=== PATIENT | female | born 1950 | race Caucasian/White ===

== ENCOUNTER 2016-03-21 21:55 | Inpatient (IN) | payer OTHER ==
[~2016-03-21] VITALS: Ht 175.3 cm; Wt 98.9 kg
[2016-03-21 22:05] VITALS: BP 120/86; PULSE 105; RESP 18; TEMP 98.1; O2SAT 89
[2016-03-21] MEDS ORDERED: NACL 0.9% 1,000 ML IV SCH (22:25)
[2016-03-21 22:51] LABS: HEMATOCRIT 27.8 % (36-48); HEMOGLOBIN 8.7 g/dL (12.0-16.0); MEAN CORPUSCULAR HEMOGLOBIN 25 pg (27-31); MEAN CORPUSCULAR HGB CONC 31 % (32-36); MEAN CORPUSCULAR VOLUME 79 fL (79.0-98.0); PLATELET COUNT (AUTO) 424 K/uL (130-430); RED BLOOD CELL COUNT(AUTO) 3.54 MIL/uL (4.2-6.2); RED CELL DISTRIBUTION WIDTH 15.4 % (9.0-15.0)
[2016-03-21] MEDS ORDERED: LISI40TA4 PO (22:56)
[2016-03-21] MEDS ORDERED: DICY20TA55 PO (22:56)
[2016-03-21] MEDS ORDERED: BUTA1CAP44 PO (22:56)
[2016-03-21] MEDS ORDERED: RANI300T7 PO (22:56)
[2016-03-21] MEDS ORDERED: PROC10TA PO (22:56)
[2016-03-21] MEDS ORDERED: GLIP5TAB13 PO (22:56)
[2016-03-21] MEDS ORDERED: AMLO5TAB4 PO (22:56)
[2016-03-21] MEDS ORDERED: [UNRECOGNIZED DRUG - CODE] PO (22:56)
[2016-03-21] MEDS ORDERED: IMI50 PO (22:56)
[2016-03-21] MEDS ORDERED: PROP80TA4 PO (22:56)
[2016-03-21] MEDS ORDERED: METH5TAB70 PO (22:56)
[2016-03-21] MEDS ORDERED: GABA-533 PO (22:56)
[2016-03-21] MEDS ORDERED: ALPR0.5T96 PO (22:56)
[2016-03-21] MEDS ORDERED: OMEP40CA33 PO (22:56)
[2016-03-21] MEDS ORDERED: ZOLP5TAB2 PO (22:56)
[2016-03-21 22:57] LABS: ANION GAP 8 (5-15); CALCIUM 8.7 mg/dL (8.4-11.0); CHLORIDE 112 mmol/L (98-107); CREATININE 0.95 mg/dL (0.55-1.30); GLUCOSE 243 mg/dL (70-99); SODIUM SERUM 148 mmol/L (136-145); UREA NITROGEN, BLOOD 29 mg/dL (8-21)
[2016-03-21 23:01] LABS: PROTHROMBIN TIME 10.8 SECS (9.5-12.5)
[2016-03-21 23:10] LABS: ALANINE AMINOTRANSFERASE 48 U/L (12-78); ALBUMIN 2.7 g/dL (3.4-4.8); ASPARTATE AMINOTRANSFERASE 76 U/L (10-37); CREATINE KINASE, TOTAL 2037 U/L (26-192); SALICYLATE 3 mg/dL (3-30); TOTAL BILIRUBIN 0.3 mg/dL (0.0-1.0); TOTAL PROTEIN, SERUM 6.8 g/dL (6.4-8.3)
[2016-03-21 23:26] LABS: ALCOHOL, BLOOD < 3 mg/dL (<10); GFR AFRICAN AMERICAN 75 mL/min (>90)
[2016-03-21 23:30] LABS: BILIRUBIN,URINE NEGATIVE (NEGATIVE); BLOOD, URINE 2+ (NEGATIVE); CLARITY/URINE CLOUDY (CLEAR); COLOR,URINE YELLOW (YELLOW); GLUCOSE,URINE NEGATIVE (NEGATIVE); KETONES,URINE 1+ (NEGATIVE); LEUKOCYTE ESTERASE ,URINE 2+ (NEGATIVE); NITRITE, URINE NEGATIVE (NEGATIVE); PROTEIN URINE 2+ (NEGATIVE); UROBILINOGEN,URINE 0.2 (0.2-1.0)
[2016-03-21 23:35] LABS: ACETAMINOPHEN < 1 ug/mL (1-30)
[2016-03-21] MEDS ORDERED: ATROPINE SULFATE 1 MG/10 ML SYRINGE IVP ONE (23:38)
[2016-03-21 23:42] LABS: CKMB RELATIVE INDEX 0.3 (0.0-2.9)
[2016-03-21] MEDS ORDERED: cefTRIAXone 2 GM VIAL ONE (23:43)
[2016-03-21] MEDS ORDERED: NACL 0.9% 1,000 ML IV ONE ×2 (23:45)
[2016-03-21 23:52] LABS: BAND % (MANUAL) 3 % (0-6); BASOPHILS % (MANUAL) 0 % (0-2); EOSINOPHILS % (MANUAL) 0 % (0-7); LYMPHOCYTES % (MANUAL) 4 % (20-46); MONOCYTES % (MANUAL) 3 % (0-11)
[2016-03-22] VITALS (25 sets, daily range): BP systolic 95–126; BP diastolic 34–72; PULSE 65–117; RESP 19–29; TEMP 98–101.1; O2SAT 90–97
[2016-03-22 00:02] LABS: BARBITURATE, URINE POSITIVE (NEG <=200); BENZODIAZEPINE, URINE POSITIVE (NEG <=150); METHAMPHETAMINES SCREEN,URINE NEGATIVE (NEG <=500); URINE AMPHETAMINE NEGATIVE (NEG <=500); URINE METHADONE NEGATIVE (NEG <=200)
[2016-03-22 00:03] LABS: CANNABINOID, URINE NEGATIVE (NEG <=50); COCAINE, URINE NEGATIVE (NEG <=150); OPIATE, URINE POSITIVE (NEG <=100); PHENCYCLIDINE SCREEN,URINE NEGATIVE (NEG <=25); UR TRICYCLIC ANTIDEPRESSANTS NEGATIVE (NEG <=300); URINE OXYCODONE SCREEN NEGATIVE (NEG <=100); URINE PROPOXYPHENE SCREEN NEGATIVE (NEG <=300)
[2016-03-22 00:25] LABS: BACTERIA,URINE MANY /HPF (None Seen); WBC,URINE >100 /HPF (0-3)
[2016-03-22 00:26] LABS: MUCUS,URINE None Seen /LPF (None Seen)
[2016-03-22] MEDS ORDERED: HEPARIN IV FLUSH 300 UNITS/3ML SYR INJ ONE (00:45)
[2016-03-22] MEDS ORDERED: CLOPIDOGREL BISULFATE 75 MG TABLET PO ONE (00:45)
[2016-03-22] MEDS ORDERED: ASPIRIN 325 MG TABLET PO ONE (00:45)
[2016-03-22] MEDS ORDERED: CLOPIDOGREL BISULFATE 75 MG TABLET ONE (00:48)
[2016-03-22] MEDS ORDERED: *HEPARIN PER PHARMACY XX ONE (01:00)
[2016-03-22] MEDS ORDERED: HEPARIN SODIUM,PORCINE 5000 UNITS/ML VIAL IVP ONE (01:00)
[2016-03-22] MEDS ORDERED: METOCLOPRAMIDE HCL 10 MG/2 ML VIAL IVP PRN (01:15)
[2016-03-22] MEDS ORDERED: HEPARIN SODIUM,PORCINE 2000 UNITS/0.4 ML BOLUS IVP PRN (01:15)
[2016-03-22] MEDS ORDERED: POTASSIUM CHLORIDE 40 MEQ, LIDOCAINE JECT 2% PF 100 MG 75 MG in NS 250 ML IV ONE (01:15)
[2016-03-22] MEDS ORDERED: HEPARIN SODIUM,PORCINE 3000 UNITS/0.6 ML BOLUS IVP PRN (01:15)
[2016-03-22] MEDS ORDERED: LORazepam 2 MG/ML VIAL IVP PRN (01:15)
[2016-03-22] MEDS ORDERED: DEXTROSE 50% JECT 50 ML DISP.SYRIN IVP PRN (01:15)
[2016-03-22] MEDS ORDERED: HEPARIN 25,000 UNITS in 250 ML PREMIX IV PRN ×2 (01:15→05:00)
[2016-03-22] MEDS ORDERED: ACETAMINOPHEN 325 MG TABLET PO PRN (01:15)
[2016-03-22] MEDS: NACL 0.9% 1,000 ML IV SCH ×3 (02:03→20:24)
[2016-03-22] MEDS ORDERED: KCL 40 mEq in 100 mL (PREMIX) 100 ML IV ONE (02:33)
[2016-03-22] MEDS ORDERED: LIDOCAINE JECT 2% PF 100 MG/5ML SYRINGE ONE (02:35)
[2016-03-22] MEDS: INSULIN REGULAR, HUMAN 100 UNITS/ML, 10 ML VIAL (novoLIN R) SUBCUT PRN ×4 (03:26→23:58)
[2016-03-22 06:58] LABS: BASOPHILS % (AUTO) 0.1 % (0.0-2.0); EOSINOPHILS % (AUTO) 0.1 % (0.0-4.0); LYMPHOCYTES # (AUTO) 0.9 K/uL (1.0-5.5); LYMPHOCYTES % (AUTO) 5.3 % (20.5-51.5); MEAN CORPUSCULAR HEMOGLOBIN 24 pg (27-31); MEAN CORPUSCULAR HGB CONC 31 % (32-36); MEAN CORPUSCULAR VOLUME 79 fL (79.0-98.0); MONOCYTES # (AUTO) 1.4 K/uL (0.0-1.0); MONOCYTES % (AUTO) 8.7 % (1.7-9.3); NEUTROPHILS # (AUTO) 13.8 K/uL (1.8-7.7); NEUTROPHILS % (AUTO) 85.8 % (40.0-70.0); PLATELET COUNT (AUTO) 314 K/uL (130-430); RED BLOOD CELL COUNT(AUTO) 2.68 MIL/uL (4.2-6.2); RED CELL DISTRIBUTION WIDTH 15.7 % (9.0-15.0); WHITE BLOOD COUNT (AUTO) 16.1 K/uL (4.8-10.8)
[2016-03-22 07:04] LABS: HEMOGLOBIN 6.5 g/dL (12.0-16.0)
[2016-03-22] MEDS ORDERED: ACETAMINOPHEN 650 MG/20.3 ML UDC PO PRN (07:45)
[2016-03-22 07:59] LABS: IRON (SERUM) 12 mcg/dL (37-145); TOTAL IRON BIND. CAPACITY 217 ug/dL (250-450)
[2016-03-22 08:15] LABS: CALCIUM 7.6 mg/dL (8.4-11.0); POTASSIUM 3.2 mmol/L (3.5-5.1)
[2016-03-22 08:16] LABS: ALBUMIN 2.2 g/dL (3.4-4.8); CREATININE 0.85 mg/dL (0.55-1.30); TOTAL BILIRUBIN 0.1 mg/dL (0.0-1.0); TOTAL PROTEIN, SERUM 5.2 g/dL (6.4-8.3)
[2016-03-22 08:17] LABS: PHOSPHORUS 1.7 mg/dL (2.7-4.5); THYROID STIMULATING HORMONE 0.02 uIu/mL (0.34-4.82)
[2016-03-22] MEDS: DOCUSATE SODIUM 100 MG CAPSULE PO SCH ×2 (08:18→20:33)
[2016-03-22] MEDS: cefTRIAXone 1 GM in D5W 50 ML IV SCH (08:18)
[2016-03-22] MEDS: LISINOPRIL 20 MG TABLET PO SCH (08:19)
[2016-03-22] MEDS: ASPIRIN 325 MG TABLET (ECOTRIN) PO SCH (08:19)
[2016-03-22] MEDS: amLODIPine BESYLATE 5 MG TABLET PO SCH (08:19)
[2016-03-22] MEDS: CLOPIDOGREL BISULFATE 75 MG TABLET PO SCH (08:20)
[2016-03-22] MEDS: GABAPENTIN 300 MG CAPSULE PO SCH ×2 (08:20→20:33)
[2016-03-22] MEDS ORDERED: PROPRANOLOL HCL 80 MG (INDERAL LA 80MG) PO SCH (09:00)
[2016-03-22] MEDS ORDERED: PANTOPRAZOLE SODIUM 40 MG/VIAL (PROTONIX) IVP SCH (09:00)
[2016-03-22] MEDS: PANTOPRAZOLE SODIUM 40 MG/VIAL (PROTONIX) IVP SCH ×2 (09:00→20:33)
[2016-03-22 09:10] LABS: HEMATOCRIT 21.4 % (36-48); HEMOGLOBIN 6.5 g/dL (12.0-16.0)
[2016-03-22 09:20] LABS: CALCIUM 7.7 mg/dL (8.4-11.0); CREATININE 0.79 mg/dL (0.55-1.30); POTASSIUM 3.5 mmol/L (3.5-5.1)
[2016-03-22 09:24] LABS: ALBUMIN 2.2 g/dL (3.4-4.8); TOTAL BILIRUBIN 0.1 mg/dL (0.0-1.0); TOTAL PROTEIN, SERUM 5.5 g/dL (6.4-8.3)
[2016-03-22 16:47] LABS: HEMOGLOBIN 8.7 g/dL (12.0-16.0)
[2016-03-22] MEDS: ACETAMINOPHEN 325 MG TABLET PO PRN (20:20)
[2016-03-22] MEDS: METOPROLOL SUCCINATE 25 MG TAB.SR.24H (TOPROL XL) PO SCH (20:34)
[2016-03-22 21:07] LABS: HEMATOCRIT 25.8 % (36-48); HEMOGLOBIN 8.1 g/dL (12.0-16.0)
[2016-03-23] VITALS (24 sets, daily range): BP systolic 84–114; BP diastolic 40–66; PULSE 48–77; RESP 15–20; TEMP 97.6–100; O2SAT 88–100; Ht 175.3 cm; Wt 98.9 kg
[2016-03-23 03:21] LABS: HEMATOCRIT 27.1 % (36-48); HEMOGLOBIN 8.5 g/dL (12.0-16.0)
[2016-03-23] MEDS: INSULIN REGULAR, HUMAN 100 UNITS/ML, 10 ML VIAL (novoLIN R) SUBCUT PRN ×4 (05:44→20:57)
[2016-03-23] MEDS: ACETAMINOPHEN 325 MG TABLET PO PRN ×2 (06:09→12:05)
[2016-03-23] MEDS: NACL 0.9% 1,000 ML IV SCH ×2 (06:16→20:59)
[2016-03-23 06:39] LABS: HEMATOCRIT 27.8 % (36-48); HEMOGLOBIN 8.6 g/dL (12.0-16.0)
[2016-03-23 07:19] LABS: ALBUMIN 2.1 g/dL (3.4-4.8); TOTAL BILIRUBIN 0.1 mg/dL (0.0-1.0); TOTAL PROTEIN, SERUM 5.5 g/dL (6.4-8.3)
[2016-03-23] MEDS: PANTOPRAZOLE SODIUM 40 MG/VIAL (PROTONIX) IVP SCH ×2 (08:34→20:43)
[2016-03-23] MEDS: cefTRIAXone 1 GM in D5W 50 ML IV SCH (08:34)
[2016-03-23 08:41] LABS: IRON (SERUM) 20 mcg/dL (37-145); TOTAL IRON BIND. CAPACITY 217 ug/dL (250-450)
[2016-03-23] MEDS: amLODIPine BESYLATE 5 MG TABLET PO SCH (08:41)
[2016-03-23] MEDS: LISINOPRIL 20 MG TABLET PO SCH (08:41)
[2016-03-23 08:49] LABS: BILIRUBIN,DIRECT 0.1 mg/dL (0.0-0.3)
[2016-03-23] MEDS: CLOPIDOGREL BISULFATE 75 MG TABLET PO SCH (10:02)
[2016-03-23] MEDS: GABAPENTIN 300 MG CAPSULE PO SCH ×2 (10:02→20:43)
[2016-03-23] MEDS: DOCUSATE SODIUM 100 MG CAPSULE PO SCH ×2 (10:02→20:43)
[2016-03-23] MEDS: ASPIRIN 325 MG TABLET (ECOTRIN) PO SCH (10:02)
[2016-03-23] MEDS: METOPROLOL SUCCINATE 25 MG TAB.SR.24H (TOPROL XL) PO SCH (10:03)
[2016-03-23 11:16] LABS: RETICULOCYTE COUNT 1.3 % (0.5-1.5)
[2016-03-23] MEDS ORDERED: NS 500 ML IV ONE (11:30)
[2016-03-23] MEDS ORDERED: LACTOBACILLUS RHAMNOSUS GG 1 CAP CAPSULE PO ONE (11:45)
[2016-03-23] MEDS: PIPERACILLIN/TAZO 3.375/DEX-IS 50 ML IV SCH ×2 (12:16→17:28)
[2016-03-23 13:08] LABS: BASOPHILS % (AUTO) 0.1 % (0.0-2.0); EOSINOPHILS # (AUTO) 0.1 K/uL (0.0-0.4); EOSINOPHILS % (AUTO) 0.5 % (0.0-4.0); HEMATOCRIT 25.8 % (36-48); HEMOGLOBIN 8.1 g/dL (12.0-16.0); LYMPHOCYTES # (AUTO) 1.2 K/uL (1.0-5.5); LYMPHOCYTES % (AUTO) 8.3 % (20.5-51.5); MEAN CORPUSCULAR HEMOGLOBIN 26 pg (27-31); MEAN CORPUSCULAR HGB CONC 31 % (32-36); MEAN CORPUSCULAR VOLUME 83 fL (79.0-98.0); MONOCYTES # (AUTO) 1.8 K/uL (0.0-1.0); MONOCYTES % (AUTO) 12.5 % (1.7-9.3); NEUTROPHILS # (AUTO) 11.1 K/uL (1.8-7.7); NEUTROPHILS % (AUTO) 78.6 % (40.0-70.0); PLATELET COUNT (AUTO) 207 K/uL (130-430); RED BLOOD CELL COUNT(AUTO) 3.11 MIL/uL (4.2-6.2); RED CELL DISTRIBUTION WIDTH 15.7 % (9.0-15.0); WHITE BLOOD COUNT (AUTO) 14.2 K/uL (4.8-10.8)
[2016-03-23] MEDS: LEVOFLOXACIN 500 MG/D5W 100 ML IV SCH (13:16)
[2016-03-23 13:17] LABS: CALCIUM 7.4 mg/dL (8.4-11.0); CREATININE 1.03 mg/dL (0.55-1.30)
[2016-03-23 13:21] LABS: ALBUMIN 2.1 g/dL (3.4-4.8); TOTAL PROTEIN, SERUM 5.3 g/dL (6.4-8.3)
[2016-03-23 13:37] LABS: TOTAL BILIRUBIN 0.1 mg/dL (0.0-1.0)
[2016-03-23 15:01] LABS: HEMATOCRIT 24.9 % (36-48); HEMOGLOBIN 7.7 g/dL (12.0-16.0)
[2016-03-23] MEDS: LACTOBACILLUS RHAMNOSUS GG 1 CAP CAPSULE PO SCH (20:43)
[2016-03-23] MEDS: ATORVASTATIN 20 MG TABLET PO SCH (20:50)
[2016-03-24] VITALS (16 sets, daily range): BP systolic 96–158; BP diastolic 39–91; PULSE 41–80; RESP 15–20; TEMP 97–98.5; O2SAT 84–100
[2016-03-24] MEDS: PIPERACILLIN/TAZO 3.375/DEX-IS 50 ML IV SCH ×3 (00:24→11:14)
[2016-03-24] MEDS: ACETAMINOPHEN 325 MG TABLET PO PRN (01:12)
[2016-03-24 04:42] LABS: BASOPHILS # (AUTO) 0.1 K/uL (0.0-0.2); EOSINOPHILS # (AUTO) 0.1 K/uL (0.0-0.4); MEAN CORPUSCULAR HGB CONC 32 % (32-36); MEAN CORPUSCULAR VOLUME 84 fL (79.0-98.0)
[2016-03-24 04:45] LABS: BASOPHILS % (AUTO) 0.4 % (0.0-2.0); EOSINOPHILS % (AUTO) 0.9 % (0.0-4.0); HEMOGLOBIN 10.7 g/dL (12.0-16.0); LYMPHOCYTES # (AUTO) 1.2 K/uL (1.0-5.5); LYMPHOCYTES % (AUTO) 8.8 % (20.5-51.5); MEAN CORPUSCULAR HEMOGLOBIN 26 pg (27-31); MONOCYTES # (AUTO) 1.4 K/uL (0.0-1.0); MONOCYTES % (AUTO) 10.1 % (1.7-9.3); NEUTROPHILS % (AUTO) 79.8 % (40.0-70.0); PLATELET COUNT (AUTO) 184 K/uL (130-430); RED BLOOD CELL COUNT(AUTO) 4.07 MIL/uL (4.2-6.2); RED CELL DISTRIBUTION WIDTH 15.3 % (9.0-15.0); WHITE BLOOD COUNT (AUTO) 13.8 K/uL (4.8-10.8)
[2016-03-24] MEDS: INSULIN REGULAR, HUMAN 100 UNITS/ML, 10 ML VIAL (novoLIN R) SUBCUT PRN ×4 (06:18→20:37)
[2016-03-24 07:52] LABS: HEMATOCRIT 32.4 % (36-48); HEMOGLOBIN 10.3 g/dL (12.0-16.0)
[2016-03-24] MEDS: GABAPENTIN 300 MG CAPSULE PO SCH ×2 (08:29→20:30)
[2016-03-24] MEDS: PANTOPRAZOLE SODIUM 40 MG/VIAL (PROTONIX) IVP SCH ×2 (08:29→20:30)
[2016-03-24] MEDS: ASPIRIN 81 MG TABLET(ECOTRIN) PO SCH (08:30)
[2016-03-24] MEDS: ATORVASTATIN 20 MG TABLET PO SCH (08:30)
[2016-03-24] MEDS: CLOPIDOGREL BISULFATE 75 MG TABLET PO SCH (08:30)
[2016-03-24] MEDS: DOCUSATE SODIUM 100 MG CAPSULE PO SCH ×2 (08:30→20:30)
[2016-03-24] MEDS: LACTOBACILLUS RHAMNOSUS GG 1 CAP CAPSULE PO SCH ×2 (09:01→20:30)
[2016-03-24] MEDS: NACL 0.9% 1,000 ML IV SCH ×3 (09:01→21:39)
[2016-03-24 10:58] LABS: HEMATOCRIT 34.2 % (36-48); HEMOGLOBIN 10.9 g/dL (12.0-16.0)
[2016-03-24] MEDS: LEVOFLOXACIN 500 MG/D5W 100 ML IV SCH (13:16)
[2016-03-24] MEDS ORDERED: DIATR MEGLU/DIATRIZ SOD 30 ML SOLUTION PO ONE (13:26)
[2016-03-24 15:28] LABS: FOLATE (FOLIC ACID) 7.6 ng/mL (>3.0)
[2016-03-24 22:56] LABS: HEMATOCRIT 34.8 % (36-48); HEMOGLOBIN 10.8 g/dL (12.0-16.0)
[2016-03-25] VITALS: BP 148/82; PULSE 68; RESP 16; TEMP 98.2; O2SAT 98
[2016-03-25 04:21] VITALS: BP 147/80; PULSE 70; RESP 18; TEMP 97.7; O2SAT 98
[2016-03-25] MEDS: INSULIN REGULAR, HUMAN 100 UNITS/ML, 10 ML VIAL (novoLIN R) SUBCUT PRN ×4 (06:09→20:21)
[2016-03-25 06:32] LABS: HEMATOCRIT 32.7 % (36-48); HEMOGLOBIN 10.6 g/dL (12.0-16.0)
[2016-03-25 06:55] LABS: ALBUMIN 2.1 g/dL (3.4-4.8); BILIRUBIN,DIRECT 0.1 mg/dL (0.0-0.3); TOTAL BILIRUBIN 0.3 mg/dL (0.0-1.0); TOTAL PROTEIN, SERUM 5.4 g/dL (6.4-8.3)
[2016-03-25 08:00] VITALS: BP 173/94; PULSE 83; RESP 18; TEMP 98.3; O2SAT 94
[2016-03-25] MEDS: DOCUSATE SODIUM 100 MG CAPSULE PO SCH ×2 (10:27→20:12)
[2016-03-25] MEDS: PANTOPRAZOLE SODIUM 40 MG/VIAL (PROTONIX) IVP SCH ×2 (10:27→20:12)
[2016-03-25] MEDS: CLOPIDOGREL BISULFATE 75 MG TABLET PO SCH (10:27)
[2016-03-25] MEDS: ATORVASTATIN 20 MG TABLET PO SCH (10:27)
[2016-03-25] MEDS: ASPIRIN 81 MG TABLET(ECOTRIN) PO SCH (10:28)
[2016-03-25] MEDS: GABAPENTIN 300 MG CAPSULE PO SCH ×2 (10:28→20:12)
[2016-03-25] MEDS: LACTOBACILLUS RHAMNOSUS GG 1 CAP CAPSULE PO SCH ×2 (10:28→20:12)
[2016-03-25] MEDS ORDERED: cloNIDine HCL 0.1 MG TABLET PO PRN (11:30)
[2016-03-25 12:47] VITALS: BP 144/87; PULSE 63; RESP 18; TEMP 96.9; O2SAT 99
[2016-03-25] MEDS: LEVOFLOXACIN 500 MG/D5W 100 ML IV SCH (14:38)
[2016-03-25] MEDS: NACL 0.9% 1,000 ML IV SCH ×2 (14:39→20:03)
[2016-03-25 16:23] VITALS: BP 151/74; PULSE 76; RESP 19; TEMP 96.9; O2SAT 96
[2016-03-25 20:36] VITALS: BP 151/72; PULSE 81; RESP 17; TEMP 98.7; O2SAT 96
[2016-03-26] VITALS (9 sets, daily range): BP systolic 137–166; BP diastolic 69–98; PULSE 73–104; RESP 16–20; TEMP 96.4–98.9; O2SAT 93–97
[2016-03-26] MEDS ORDERED: FUROSEMIDE 20 MG/2 ML VIAL IVP ONE (00:30)
[2016-03-26] MEDS: INSULIN REGULAR, HUMAN 100 UNITS/ML, 10 ML VIAL (novoLIN R) SUBCUT PRN ×2 (06:19→12:20)
[2016-03-26] MEDS: NACL 0.9% 1,000 ML IV SCH ×2 (06:23→17:40)
[2016-03-26 07:27] LABS: BASOPHILS % (AUTO) 0.1 % (0.0-2.0); EOSINOPHILS # (AUTO) 0.2 K/uL (0.0-0.4); EOSINOPHILS % (AUTO) 1.3 % (0.0-4.0); HEMATOCRIT 35.3 % (36-48); HEMOGLOBIN 11.5 g/dL (12.0-16.0); LYMPHOCYTES # (AUTO) 0.9 K/uL (1.0-5.5); LYMPHOCYTES % (AUTO) 6.6 % (20.5-51.5); MEAN CORPUSCULAR HEMOGLOBIN 27 pg (27-31); MEAN CORPUSCULAR HGB CONC 33 % (32-36); MEAN CORPUSCULAR VOLUME 82 fL (79.0-98.0); MONOCYTES # (AUTO) 0.8 K/uL (0.0-1.0); MONOCYTES % (AUTO) 6.1 % (1.7-9.3); NEUTROPHILS # (AUTO) 11.9 K/uL (1.8-7.7); NEUTROPHILS % (AUTO) 85.9 % (40.0-70.0); PLATELET COUNT (AUTO) 248 K/uL (130-430); RED BLOOD CELL COUNT(AUTO) 4.32 MIL/uL (4.2-6.2); RED CELL DISTRIBUTION WIDTH 16.2 % (9.0-15.0); WHITE BLOOD COUNT (AUTO) 13.8 K/uL (4.8-10.8)
[2016-03-26] MEDS: ACETAMINOPHEN 325 MG TABLET PO PRN (07:38)
[2016-03-26] MEDS: ASPIRIN 81 MG TABLET(ECOTRIN) PO SCH (09:43)
[2016-03-26] MEDS: GABAPENTIN 300 MG CAPSULE PO SCH ×2 (09:43→21:21)
[2016-03-26] MEDS: DOCUSATE SODIUM 100 MG CAPSULE PO SCH ×2 (09:43→21:22)
[2016-03-26] MEDS: LACTOBACILLUS RHAMNOSUS GG 1 CAP CAPSULE PO SCH ×2 (09:43→21:22)
[2016-03-26] MEDS: CLOPIDOGREL BISULFATE 75 MG TABLET PO SCH (09:43)
[2016-03-26] MEDS: ATORVASTATIN 20 MG TABLET PO SCH (09:43)
[2016-03-26] MEDS: PANTOPRAZOLE SODIUM 40 MG/VIAL (PROTONIX) IVP SCH ×2 (09:45→21:22)
[2016-03-26 10:15] LABS: TOTAL BILIRUBIN 0.3 mg/dL (0.0-1.0)
[2016-03-26 11:45] LABS: ALBUMIN 2.2 g/dL (3.4-4.8); CALCIUM 7.9 mg/dL (8.4-11.0); CREATININE 0.66 mg/dL (0.55-1.30); TOTAL PROTEIN, SERUM 5.5 g/dL (6.4-8.3)
[2016-03-26] MEDS: LEVOFLOXACIN 500 MG/D5W 100 ML IV SCH (13:22)
[2016-03-26] MEDS ORDERED: POTASSIUM CHLORIDE 20 MEQ TAB.PRT.SR PO ONE (21:15)
[2016-03-26] MEDS ORDERED: COMMUNICATION ORDER XX ONE (21:15)
[2016-03-27] VITALS (7 sets, daily range): BP systolic 127–167; BP diastolic 70–99; PULSE 76–107; RESP 18–20; TEMP 97.2–98.7; O2SAT 92–98
[2016-03-27] MEDS: NACL 0.9% 1,000 ML IV SCH ×2 (03:32→13:11)
[2016-03-27] MEDS: PANTOPRAZOLE SODIUM 40 MG/VIAL (PROTONIX) IVP SCH (08:44)
[2016-03-27] MEDS: ATORVASTATIN 20 MG TABLET PO SCH (08:45)
[2016-03-27] MEDS: GABAPENTIN 300 MG CAPSULE PO SCH ×2 (08:45→23:01)
[2016-03-27] MEDS: LACTOBACILLUS RHAMNOSUS GG 1 CAP CAPSULE PO SCH ×2 (08:45→23:01)
[2016-03-27] MEDS: CLOPIDOGREL BISULFATE 75 MG TABLET PO SCH (08:45)
[2016-03-27] MEDS: DOCUSATE SODIUM 100 MG CAPSULE PO SCH ×3 (08:45→21:00)
[2016-03-27] MEDS: ASPIRIN 81 MG TABLET(ECOTRIN) PO SCH (08:45)
[2016-03-27 08:56] LABS: HEMATOCRIT 34.1 % (36-48); HEMOGLOBIN 11.3 g/dL (12.0-16.0)
[2016-03-27 10:19] LABS: CALCIUM 8.1 mg/dL (8.4-11.0); CREATININE 0.48 mg/dL (0.55-1.30); POTASSIUM 3.1 mmol/L (3.5-5.1)
[2016-03-27 10:24] LABS: ALBUMIN 2.3 g/dL (3.4-4.8); TOTAL BILIRUBIN 0.3 mg/dL (0.0-1.0); TOTAL PROTEIN, SERUM 5.7 g/dL (6.4-8.3)
[2016-03-27] MEDS: INSULIN REGULAR, HUMAN 100 UNITS/ML, 10 ML VIAL (novoLIN R) SUBCUT PRN ×3 (11:51→23:11)
[2016-03-27] MEDS: LEVOFLOXACIN 500 MG/D5W 100 ML IV SCH (13:10)
[2016-03-27] MEDS: ACETAMINOPHEN 325 MG TABLET PO PRN ×2 (13:17→23:07)
[2016-03-27] MEDS ORDERED: BISACODYL 5 MG TABLET.DR (DULCOLAX) PO ONE (17:00)
[2016-03-27] MEDS ORDERED: GOLYTELY / COLYTE SOLUTION 4 LITERS PO ONE (18:00)
[2016-03-27] MEDS ORDERED: ALPRAZolam 0.25 MG TABLET PO ONE (21:45)
[2016-03-28] VITALS (7 sets, daily range): BP systolic 100–147; BP diastolic 49–85; PULSE 74–99; RESP 18–20; TEMP 97.2–98.8; O2SAT 92–97
[2016-03-28] MEDS ORDERED: MAGNESIUM CITRATE 300 ML ORAL SOLUTION PO ONE (00:45)
[2016-03-28] MEDS: INSULIN REGULAR, HUMAN 100 UNITS/ML, 10 ML VIAL (novoLIN R) SUBCUT PRN ×2 (05:46→12:06)
[2016-03-28 07:48] LABS: PROTHROMBIN TIME 11.3 SECS (9.5-12.5)
[2016-03-28] MEDS: ACETAMINOPHEN 325 MG TABLET PO PRN ×2 (08:13→18:55)
[2016-03-28] MEDS: LACTOBACILLUS RHAMNOSUS GG 1 CAP CAPSULE PO SCH (09:23)
[2016-03-28] MEDS: CLOPIDOGREL BISULFATE 75 MG TABLET PO SCH (09:23)
[2016-03-28] MEDS: ASPIRIN 81 MG TABLET(ECOTRIN) PO SCH (09:24)
[2016-03-28] MEDS: DOCUSATE SODIUM 100 MG CAPSULE PO SCH (09:24)
[2016-03-28] MEDS: GABAPENTIN 300 MG CAPSULE PO SCH (09:24)
[2016-03-28] MEDS: ATORVASTATIN 20 MG TABLET PO SCH (09:24)
[2016-03-28] MEDS ORDERED: LEVOFLOXACIN 500 MG TABLET PO SCH (10:00)
[2016-03-28] MEDS ORDERED: POTASSIUM CHLORIDE 20 MEQ TAB.PRT.SR PO ONE (17:30)
== END 2016-03-28 22:25 | DRG 871 ==
LOC: SED 21:55 → SIC 03-22 00:51 → STU 03-24 11:58
PROVIDERS: ADMIT Internal Medicine Hospice and Palliative Medicine; ATTEND Internal Medicine Hospice and Palliative Medicine
PROC: 30233N1 Transfusion of Nonautologous Red Blood Cells into Peripheral Vein, Percutaneous Approach (ICD-10-PCS; principal; 2016-03-22)
DX: A41.51 Sepsis due to Escherichia coli [E. coli] (principal); I21.3 ST elevation (STEMI) myocardial infarction of unspecified site; E44.0 Moderate protein-calorie malnutrition; K92.2 Gastrointestinal hemorrhage, unspecified; M62.82 Rhabdomyolysis; N13.30 Unspecified hydronephrosis; N39.0 Urinary tract infection, site not specified; T42.4X1A Poisoning by benzodiazepines, accidental (unintentional), initial encounter; E11.9 Type 2 diabetes mellitus without complications; I10 Essential (primary) hypertension; D50.9 Iron deficiency anemia, unspecified; K21.9 Gastro-esophageal reflux disease without esophagitis; N13.5 Crossing vessel and stricture of ureter without hydronephrosis; I25.2 Old myocardial infarction; Z68.32 Body mass index [BMI] 32.0-32.9, adult; Z79.899 Other long term (current) drug therapy
CPT/HCPCS: 36415; 70450-TC; 71010; 76700-TC; 76770; 80053; 80076; 80307; 81000-TC; 82272; 82550-TC; 82553-TC; 82607; 82728; 82746; 82962; 83010; 83540-TC; 83550-TC; 83605; 83735-TC; 84100-TC; 84443-TC; 84484; 85007; 85018-TC; 85025; 85027; 85044-TC; 85610-TC; 85730-TC; 86886; 86900; 86901; 86920; 87040-TC; 87081; 87086; 87186-TC; 93005; 93306; 93880; 96365; 96375; 97110-GP; 97116-GP; 97530-GP; 99285; C9113; G0480; G0481; G0482; J0461; J0696; J1644; J1815; J1940; J1956; J2543; J3480; J7030; J7040; J7050; J7060; P9021; Q9964

== ENCOUNTER 2016-12-15 14:40 | Inpatient (IN) | payer OTHER ==
[~2016-12-15] VITALS: Ht 167.6 cm; Wt 90.7 kg
[2016-12-15 14:48] VITALS: BP_SYST 156
[2016-12-15 15:16] LABS: MEAN CORPUSCULAR HEMOGLOBIN 22 pg (27-31); MEAN CORPUSCULAR HGB CONC 30 % (32-36); MEAN CORPUSCULAR VOLUME 75 fL (79.0-98.0); PLATELET COUNT (AUTO) 440 K/uL (130-430); RED BLOOD CELL COUNT(AUTO) 2.81 MIL/uL (4.2-6.2); RED CELL DISTRIBUTION WIDTH 15.7 % (9.0-15.0); WHITE BLOOD COUNT (AUTO) 9.9 K/uL (4.8-10.8)
[2016-12-15 15:20] LABS: HEMATOCRIT 20.9 % (36-48); HEMOGLOBIN 6.2 g/dL (12.0-16.0)
[2016-12-15 15:30] LABS: BAND % (MANUAL) 0 % (0-6); BASOPHILS % (MANUAL) 0 % (0-2); EOSINOPHILS % (MANUAL) 5 % (0-7); LYMPHOCYTES % (MANUAL) 10 % (20-46); MONOCYTES % (MANUAL) 7 % (0-11)
[2016-12-15 15:32] LABS: CALCIUM 9.2 mg/dL (8.4-11.0); CREATININE 0.9 mg/dL (0.55-1.30); POTASSIUM 4.2 mmol/L (3.5-5.1)
[2016-12-15 15:37] LABS: ALBUMIN 3.4 g/dL (3.4-4.8); TOTAL BILIRUBIN 0.3 mg/dL (0.0-1.0)
[2016-12-15 16:01] LABS: BILIRUBIN,URINE NEGATIVE (NEGATIVE); BLOOD, URINE NEGATIVE (NEGATIVE); CLARITY/URINE CLEAR (CLEAR); COLOR,URINE YELLOW (YELLOW); GLUCOSE,URINE NEGATIVE (NEGATIVE); KETONES,URINE NEGATIVE (NEGATIVE); LEUKOCYTE ESTERASE ,URINE TRACE (NEGATIVE); NITRITE, URINE NEGATIVE (NEGATIVE); PH,URINE 6.5 (5.0-8.0); PROTEIN URINE NEGATIVE (NEGATIVE); UROBILINOGEN,URINE 0.2 (0.2-1.0)
[2016-12-15 16:10] LABS: BACTERIA,URINE FEW /HPF (None Seen); MUCUS,URINE None Seen /LPF (None Seen); RBC,URINE NONE SEEN /HPF (0-3)
[2016-12-15] MEDS ORDERED: cloNIDine HCL 0.1 MG TABLET PO PRN (16:45)
[2016-12-15] MEDS ORDERED: DEXTROSE 50% JECT 50 ML DISP.SYRIN IVP PRN (16:45)
[2016-12-15] MEDS ORDERED: INSULIN REGULAR, HUMAN 100 UNITS/ML, 10 ML VIAL (novoLIN R) SUBCUT PRN (16:45)
[2016-12-15] MEDS ORDERED: ACETAMINOPHEN 325 MG TABLET PO PRN (16:45)
[2016-12-15 17:25] VITALS: BP_SYST 134
[2016-12-15] MEDS: ACETAMINOPHEN/CODEINE 300 MG-30 MG TABLET PO PRN (19:59)
[2016-12-15] MEDS: GABAPENTIN 100 MG CAPSULE PO SCH (20:14)
[2016-12-15] MEDS: PANTOPRAZOLE SODIUM 40 MG/VIAL (PROTONIX) IVP SCH (20:15)
[2016-12-15] MEDS ORDERED: ZOLPIDEM TARTRATE 5 MG TABLET PO ONE (21:45)
[2016-12-16 00:05] VITALS: BP_SYST 145
[2016-12-16 00:17] VITALS: BP_SYST 144
[2016-12-16] MEDS: ACETAMINOPHEN/CODEINE 300 MG-30 MG TABLET PO PRN ×2 (01:17→09:07)
[2016-12-16 04:06] VITALS: BP_SYST 142
[2016-12-16] MEDS ORDERED: LIP40 PO (06:17)
[2016-12-16] MEDS ORDERED: INDLA80 PO (06:17)
[2016-12-16] MEDS ORDERED: CARB-61 PO (06:17)
[2016-12-16] MEDS ORDERED: LISI40TA4 PO (06:17)
[2016-12-16] MEDS ORDERED: METH5TAB70 PO (06:17)
[2016-12-16] MEDS ORDERED: ALPR0.5T8 PO (06:17)
[2016-12-16] MEDS ORDERED: GABA-533 PO (06:17)
[2016-12-16] MEDS ORDERED: DICY10CA59 PO (06:17)
[2016-12-16] MEDS ORDERED: RANI-368 PO (06:17)
[2016-12-16] MEDS ORDERED: OMEP40CA33 PO (06:17)
[2016-12-16] MEDS ORDERED: AMLO5TAB4 PO (06:17)
[2016-12-16] MEDS ORDERED: TRIA0.252 PO (06:17)
[2016-12-16 07:06] LABS: BASOPHILS # (AUTO) 0.1 K/uL (0.0-0.2); BASOPHILS % (AUTO) 0.8 % (0.0-2.0); EOSINOPHILS # (AUTO) 0.3 K/uL (0.0-0.4); EOSINOPHILS % (AUTO) 4.3 % (0.0-4.0); HEMATOCRIT 25.7 % (36-48); LYMPHOCYTES # (AUTO) 1.2 K/uL (1.0-5.5); LYMPHOCYTES % (AUTO) 15.6 % (20.5-51.5); MEAN CORPUSCULAR HEMOGLOBIN 25 pg (27-31); MEAN CORPUSCULAR HGB CONC 31 % (32-36); MEAN CORPUSCULAR VOLUME 79 fL (79.0-98.0); MONOCYTES # (AUTO) 0.8 K/uL (0.0-1.0); MONOCYTES % (AUTO) 10.3 % (1.7-9.3); NEUTROPHILS # (AUTO) 5.5 K/uL (1.8-7.7); PLATELET COUNT (AUTO) 353 K/uL (130-430); RED BLOOD CELL COUNT(AUTO) 3.23 MIL/uL (4.2-6.2); WHITE BLOOD COUNT (AUTO) 7.9 K/uL (4.8-10.8)
[2016-12-16 07:40] LABS: ALBUMIN 3.1 g/dL (3.4-4.8); CALCIUM 9.1 mg/dL (8.4-11.0); CREATININE 0.72 mg/dL (0.55-1.30); POTASSIUM 3.8 mmol/L (3.5-5.1); TOTAL BILIRUBIN 0.5 mg/dL (0.0-1.0)
[2016-12-16 08:00] VITALS: BP_SYST 143
[2016-12-16] MEDS: PANTOPRAZOLE SODIUM 40 MG/VIAL (PROTONIX) IVP SCH (08:03)
[2016-12-16] MEDS: GABAPENTIN 100 MG CAPSULE PO SCH (08:03)
[2016-12-16 11:22] VITALS: BP_SYST 161
[2016-12-16 11:48] VITALS: BP_SYST 163
[2016-12-16] MEDS ORDERED: GABAPENTIN 400 MG CAPSULE PO SCH (12:00)
[2016-12-16] MEDS ORDERED: CARBIDOPA/LEVODOPA 25/100 MG TABLET PO SCH (12:00)
[2016-12-16] MEDS ORDERED: DICYCLOMINE HCL 10 MG CAPSULE PO SCH (13:00)
[2016-12-16] MEDS ORDERED: METHIMAZOLE 5 MG TABLET PO SCH (21:00)
[2016-12-16] MEDS ORDERED: ATORVASTATIN 20 MG TABLET PO SCH (21:00)
[2016-12-17] MEDS ORDERED: OMEPRAZOLE 20 MG CAPSULE.DR (PriLOSEC) PO SCH (09:00)
[2016-12-17] MEDS ORDERED: PROPRANOLOL HCL 80 MG (INDERAL LA 80MG) PO SCH (09:00)
[2016-12-17] MEDS ORDERED: amLODIPine BESYLATE 5 MG TABLET PO SCH (09:00)
[2016-12-17] MEDS ORDERED: LISINOPRIL 20 MG TABLET PO SCH (09:00)
== END 2016-12-16 12:46 | disposition home or self-care (01) | DRG 812 ==
LOC: SED 14:40 → STU 16:33
PROVIDERS: ADMIT Internal Medicine Hospice and Palliative Medicine; ATTEND Internal Medicine Hospice and Palliative Medicine
PROC: 30233N1 Transfusion of Nonautologous Red Blood Cells into Peripheral Vein, Percutaneous Approach (ICD-10-PCS; principal; 2016-12-15)
DX: D64.9 Anemia, unspecified (principal); G20 Parkinson's disease; E11.9 Type 2 diabetes mellitus without complications; I10 Essential (primary) hypertension; Z87.11 Personal history of peptic ulcer disease; Z91.81 History of falling; Z88.6 Allergy status to analgesic agent
CPT/HCPCS: 36415; 80053; 81000-TC; 85007; 85025; 85027; 85610-TC; 85730-TC; 86886; 86900; 86901; 86920; 99285; C9113; J1815; J7040; P9021